=== PATIENT | female | born 1965 | race Caucasian/White ===

== ENCOUNTER 2023-05-01 13:12 | Emergency (ER) | payer OTHER, SELFPAY ==
[2023-05-01 13:32] VITALS: BP 124/74; PULSE 74; RESP 16; TEMP 37.7; O2SAT 98
[2023-05-01 13:33] VITALS: BP 124/74; PULSE 74; RESP 16; TEMP 37.7; O2SAT 98
--- NOTE | 2023-05-01 14:36 | ED.URI ---
HPI - URI/Sore Throat General Chief Complaint: Upper Respiratory Infection Stated Complaint: SINUS CONGESTION/COUGH/SORE THROAT/REAVES/FEVER/CHILLS Time Seen by Provider: 05/01/23 14:19 Source: patient and RN notes reviewed Mode of arrival: ambulatory Limitations: no limitations History of Present Illness HPI Narrative: Patient presents today with a one-week history of cough, nasal congestion, sore throat, headache, pain in her teeth, and fever up to 100.5. She has been taking Mucinex, DayQuil, and NyQuil without much relief. Denies history of asthma or COPD. She is a nonsmoker. Related Data Home Medications Medication Instructions Recorded Confirmed atenolol 100 mg tablet 100 mg PO DAILY 05/01/23 05/01/23 hydrochlorothiazide 25 mg tablet 25 mg PO DAILY 05/01/23 05/01/23 trazodone 50 mg tablet 50 mg PO DAILY 05/01/23 05/01/23 Allergies Allergy/AdvReac Type Severity Reaction Status Date / Time levofloxacin [From Levaquin] Allergy Intermediate Unknown Verified 05/01/23 14:37 Review of Systems Review of Systems: CONSTITUTIONAL: Denies body aches, chills, or sweats.+ fever EYES: Denies visual changes, redness, or discharge. ENT: Denies rhinorrhea, or otalgia.+ congestion, sore throat, pain in her teeth CARDIOVASCULAR: Denies chest pain, palpitations, or edema. RESPIRATORY: Denies dyspnea.+ cough GASTROINTESTINAL: Denies abdominal pain, nausea, vomiting, or diarrhea. GENITOURINARY: Denies dysuria or hematuria. SKIN: Denies rash, itching, or wounds. MUSCULOSKELETAL: Denies back pain, joint pain, or myalgia. NEUROLOGIC: Denies numbness, tingling, or weakness.+ headache PSYCH: Denies depression or anxiety. [facility] Past Medical History Medical History (Updated 05/01/23 @ 14:42 by Lisa Minaya, VISUAL ARTIST, ) Hypertension Comments At time of signature, I have reviewed and agree with nursing past medical, surgical, social and family history unless otherwise noted. Please see nursing chart for further information. There is no relevant family history pertinent to the presenting complaint Exam Narrative: GENERAL: Well-appearing, well-nourished, and in no acute distress. HEAD: Normocephalic, atraumatic. EYES: EOMI. No redness or drainage. Conjunctivae normal. ENT: Mucous membranes pink and moist. Nares congested. Mildly erythematous and edematous nasal turbinates bilaterally. No rhinorrhea. TMs normal bilaterally. Throat normal. Uvula midline. NECK: Normal AROM. Supple. No lymphadenopathy. CHEST: No respiratory distress. Clear to auscultation. HEART: Regular rate and rhythm. No murmur appreciated. Normal peripheral pulses. EXTREMITIES: Normal range of motion. No edema. SKIN: Warm, dry, no rash. Capillary refill normal. Normal skin turgor. NEURO: No focal deficits. Alert and oriented x3. Gait steady. PSYCH: Normal affect. No signs of depression or anxiety. Course Course Level of Care: Express Care Visit Vital Signs Vital signs: Vital Signs Temperature 100 F H 05/01/23 13:32 Pulse Rate 74 05/01/23 13:32 Respiratory Rate 16 05/01/23 13:32 Blood Pressure 124/74 05/01/23 13:32 Pulse Oximetry 98 05/01/23 13:32 Temperature 100 F H 05/01/23 13:33 Pulse Rate 74 05/01/23 13:33 Respiratory Rate 16 05/01/23 13:33 Blood Pressure 124/74 05/01/23 13:33 Pulse Oximetry 98 05/01/23 13:33 Reviewed. Pt has been instructed to follow up with her PCP regarding her elevated blood pressure today. MDM - URI/Sore Throat MDM Narrative Medical decision making narrative: Influenza negative. Patient's symptoms are consistent with bacterial sinusitis. Will treat with cefpodoxime. Considered Augmentin, but patient states she gets nauseated with this. Consider doxycycline, but patient is going on a trip tomorrow where she will be out in the sun. Anticipatory guidance given. Differential Diagnosis Differential diagnosis: Likely upper respiratory infection, sinusitis, viral infectio
== END 2023-05-01 14:45 | disposition home or self-care (01) ==
PROVIDERS: Emergency Provider Nurse Practitioner
DX: J01.90 Acute sinusitis, unspecified (principal); I10 Essential (primary) hypertension; Z79.899 Other long term (current) drug therapy; Z79.891 Long term (current) use of opiate analgesic
CPT/HCPCS: 87804; 99213; G0463